=== PATIENT | male | born 1990 | race Caucasian/White ===

== ENCOUNTER 2016-07-01 19:38 | Emergency (ER) | payer MEDICAID ==
[~2016-07-01] VITALS: Ht 177.8 cm; Wt 127.0 kg
[2016-07-01 19:47] VITALS: BP_DIAS 75
[2016-07-01] MEDS ORDERED: SODIUM CHLORIDE 0.9% 1,000 ML IV ONE (20:25)
[2016-07-01 21:08] LABS: CHLORIDE 103 mEq/L (98-107); INDEX HEMOLYSI 1 (1-3); INDEX ICTERIC 1 (1-4); INDEX LIPEMIC 1 (1-3)
[2016-07-01 21:09] LABS: BASOPHILS % 0.3 % (0.0-2.0); EOSINOPHILS % 0.2 % (0.0-5.0); HEMATOCRIT. 45.4 % (42.0-52.0); LYMPHOCYTES % 10.2 % (20.0-50.0); MEAN CORPUSCULAR HEMOGLOBIN 27.6 pg (28.0-32.0); MEAN CORPUSCULAR VOLUME 83.4 fL (80.0-94.0); MEAN PLATELET VOLUME 6.9 fl (7.4-10.4); MONOCYTES % 5.1 % (2.0-8.0); NEUTROPHILS % 84.2 % (40.0-76.0); PLATELET 296 x1000/uL (130-400); RED BLOOD CELL COUNT 5.44 mill/uL (4.7-6.1); RED CELL DISTRIBUTION WIDTH 14.1 % (11.6-14.6); WHITE BLOOD COUNT 16.5 x1000/uL (4.5-11.0)
[2016-07-01 21:18] LABS: ALANINE AMINOTRANSFERASE 265 IU/L (13-61); ANION GAP 12; CALCIUM 9.3 mg/dL (8.5-10.1); CARBON DIOXIDE 29 mEq/L (21-32); UREA NITROGEN BLOOD 16 mg/dL (7-21); eGFR > 60 mL/min (>60)
[2016-07-01 21:45] VITALS: BP_SYST 121
[2016-07-01 22:23] LABS: *AMPHETAMINES SCREEN URINE NEGATIVE (NEGATIVE); *BARBITURATES SCREEN URINE NEGATIVE (NEGATIVE); *BENZODIAZEPINES SCREEN URINE NEGATIVE (NEGATIVE); *COCAINE SCREEN URINE NEGATIVE (NEGATIVE); CANNABINOID URINE SCREEN PRESUMTIVE POSITIVE (NEGATIVE); ECSTASY MDMA SCREEN URINE NEGATIVE (NEGATIVE); METHADONE URINE SCREEN NEGATIVE (NEGATIVE); OPIATES URINE SCREEN NEGATIVE (NEGATIVE); PHENCYCLIDINE URINE SCREEN NEGATIVE (NEGATIVE)
== END 2016-07-01 22:05 | disposition home or self-care (01) ==
LOC: ER 19:47
DX: R06.02 Shortness of breath (principal); F17.200 Nicotine dependence, unspecified, uncomplicated; F12.10 Cannabis abuse, uncomplicated; R42 Dizziness and giddiness
CPT/HCPCS: 36415; 71010; 80053; 80305; 85025; 93005; 96360; 99285; J7030; Z7610